=== PATIENT | female | born 1945 | race Caucasian/White ===

== ENCOUNTER 2019-04-02 08:09 | Emergency (ER) | payer MEDICARE, OTHER ==
[~2019-04-02] VITALS: Ht 160 cm; Wt 40.9 kg
[~2019-04-02 08:09] MED LIST: ASPI-1265 PO; ATOR20TA PO; CALC-159 PO; CYAN100070 PO; FERR324T12 PO; LAMO100T2 PO; LEVO50TA78 PO
[2019-04-02] MEDS ORDERED: morphine 4 MG/ML inj SYRINge IM ONE (08:30)
--- NOTE | 2019-04-02 08:49 | NUR ---
Pt out to CT
[2019-04-02] MEDS ORDERED: morphine 4 MG/ML inj SYRINge IV ONE (11:00)
--- NOTE | 2019-04-02 12:12 | NUR ---
Pt resting comfortably, no obvious s/sx of pain or discomfort.
[2019-04-02 14:30] VITALS: BP 137/88
== END 2019-04-02 14:34 | disposition short-term general hospital (02) ==
LOC: ER 08:09
DX: S32.10XA Unspecified fracture of sacrum, initial encounter for closed fracture (principal); R60.0 Localized edema; M19.90 Unspecified osteoarthritis, unspecified site; Z79.82 Long term (current) use of aspirin; Z79.899 Other long term (current) drug therapy; Z98.890 Other specified postprocedural states; W07.XXXA Fall from chair, initial encounter; Y93.89 Activity, other specified; Y92.090 Kitchen in other non-institutional residence as the place of occurrence of the external cause; Y99.9 Unspecified external cause status
CPT/HCPCS: 72192; 96372; 96374; 99285; J2270